=== PATIENT | female | born 1990 | race Caucasian/White ===

== ENCOUNTER 2020-03-08 17:43 | Emergency (ER) | payer MEDICAID ==
[~2020-03-08] VITALS: Ht 162.6 cm; Wt 94.2 kg
[2020-03-08] MEDS ORDERED: ondansetron/PF 4mg/2ml inj IV ONE (19:00)
[2020-03-08] MEDS ORDERED: normal saline 1000ML IV soln IVB ONE (19:00)
--- NOTE | 2020-03-08 19:09 | NUR ---
PT STATES "I DONT HAVE TIME FOR BLOOD DRAWS, MEDS OR EKG." BEAR CORNEJO AT BEDSIDE.
== END 2020-03-08 19:20 | disposition home or self-care (01) ==
LOC: ER 17:45
DX: Z00.00 Encounter for general adult medical examination without abnormal findings (principal); H61.22 Impacted cerumen, left ear; F17.200 Nicotine dependence, unspecified, uncomplicated; F12.90 Cannabis use, unspecified, uncomplicated; Z98.891 History of uterine scar from previous surgery
CPT/HCPCS: 99281